=== PATIENT | male | born 1975 | race Caucasian/White ===

== ENCOUNTER 2024-10-11 12:49 | Emergency (ER) | payer MEDICAID, OTHER ==
[~2024-10-11] VITALS: Ht 170.2 cm; Wt 64.9 kg
[~2024-10-11 12:49] MED LIST: AZIT250T13 GT
[2024-10-11] MEDS ORDERED: ACETAMINOPHEN 650 MG/SUPP.RECT RC ONE (13:23)
[2024-10-11] MEDS: IV NS 0.9% 1,000 ML BAG IV ONE (13:25)
[2024-10-11] MEDS: ACETAMINOPHEN 650 MG/SUPP.RECT RC ONE (13:35)
[2024-10-11 13:37] LABS: BASOPHILS # (AUTO) 0.1 K/uL (0.0-0.2); BASOPHILS % (AUTO) 0.7 % (0.0-2.0); EOSINOPHILS # (AUTO) 0.1 K/uL (0.0-0.7); EOSINOPHILS % (AUTO) 0.6 % (0.0-6.0); HEMATOCRIT 36 % (39-51); HEMOGLOBIN 12.1 g/dL (13.5-17.5); LYMPHOCYTES # (AUTO) 3.2 K/uL (0.8-4.8); LYMPHOCYTES % (AUTO) 29.7 % (20.0-44.0); MEAN CORPUSCULAR HEMOGLOBIN 31 PG (26.0-33.0); MEAN CORPUSCULAR HGB CONC 34 g/dl (31.0-36.0); MEAN CORPUSCULAR VOLUME 92 fL (80-96); MONOCYTES # (AUTO) 0.7 K/uL (0.1-1.30); NEUTROPHILS # (AUTO) 6.6 K/uL (1.8-8.9); PLATELET COUNT (AUTO) 138 K/uL (150-450); RED BLOOD CELL COUNT(AUTO) 3.91 MIL/uL (4.5-6.0); RED CELL DISTRIBUTION WIDTH 13.7 % (11.5-15.0); WHITE BLOOD COUNT (AUTO) 10.7 K/uL (4.3-11.0)
[2024-10-11] MEDS ORDERED: PIPERACI/TAZO 3.375GM/D5W 50ML PB IV ONE (13:40)
[2024-10-11 13:42] LABS: CALCIUM, SERUM 8.8 mg/dL (8.5-10.1); CREATININE 1.1 mg/dL (0.6-1.3); POTASSIUM 3.8 mmol/L (3.5-5.1)
[2024-10-11 13:45] LABS: APPEARANCE,URINE CLEAR (CLEAR); BILIRUBIN,URINE NEGATIVE (NEGATIVE); BLOOD, URINE 1+ Ery/uL (NEGATIVE); COLOR,URINE YELLOW (YELLOW); KETONES,URINE NEGATIVE (NEGATIVE); LEUKOCYTE ESTERASE ,URINE NEGATIVE (NEGATIVE); NITRITE, URINE NEGATIVE (NEGATIVE); PROTEIN,URINE NEGATIVE (NEGATIVE); UGLUCOSE NEGATIVE (NEGATIVE)
[2024-10-11] MEDS: PIPERACILLIN /TAZOBACTAM 3.375 G in IV D5W 50 ML IV ONE (13:45)
[2024-10-11 13:47] LABS: INR 1.04 (0.91-1.10); PARTIAL THROMBOPLASTIN TIME 23.5 SEC (24.3-34.3)
[2024-10-11 13:47] LABS: ADD URINE CULTURE NO; BACTERIA,URINE Few /HPF (None Seen); RBC,URINE 21-50 /HPF (0-2); SQUAMOUS EPITHELIAL CELL,UR 0-2 /HPF (None Seen)
[2024-10-11 13:48] LABS: ALBUMIN 2.7 g/dL (3.4-5.0); BILIRUBIN,DIRECT 0.1 mg/dL (0.0-0.2); BILIRUBIN,TOTAL 0.3 mg/dL (0.2-1.0); TOTAL PROTEIN, SERUM 6.7 g/dL (6.4-8.2)
[2024-10-11 13:50] LABS: LACTIC ACID 1.7 mmol/L (0.4-2.0)
[2024-10-11] MEDS ORDERED: VANCOMYCIN 1 GM /D5W 250 ML PB IV ONE (14:06)
[2024-10-11] MEDS: VANCOMYCIN 1 GM in IV D5W 250 ML IV ONE (14:10)
[2024-10-11] MEDS ORDERED: ATOR20TA GT (15:02)
[2024-10-11] MEDS ORDERED: VALS80TA31 GT (15:02)
[2024-10-11] MEDS ORDERED: SENN8.6T19 GT (15:02)
[2024-10-11] MEDS ORDERED: INSU100I40 SQ (15:02)
[2024-10-11] MEDS ORDERED: ASCO500T10 GT (15:02)
[2024-10-11] MEDS ORDERED: ACET325T53 GT (15:02)
[2024-10-11] MEDS ORDERED: HYDR-4077 GT (15:02)
[2024-10-11] MEDS ORDERED: GLUC1KIT IM (15:02)
[2024-10-11] MEDS ORDERED: CLOP75TA15 GT (15:02)
[2024-10-11] MEDS ORDERED: MELA1TAB27 GT (15:02)
[2024-10-11] MEDS ORDERED: VALP250S3 GT (15:02)
[2024-10-11] MEDS ORDERED: AMLO-212 GT (15:02)
[2024-10-11 19:00] VITALS: BP 138/94; TEMP 99.7; O2SAT 97
== END 2024-10-11 21:15 | disposition short-term general hospital (02) ==
LOC: ER 12:52
DX: J18.9 Pneumonia, unspecified organism (principal); N39.0 Urinary tract infection, site not specified; R65.10 Systemic inflammatory response syndrome (SIRS) of non-infectious origin without acute organ dysfunction; R62.7 Adult failure to thrive; E78.5 Hyperlipidemia, unspecified; E86.0 Dehydration; E87.0 Hyperosmolality and hypernatremia; I11.9 Hypertensive heart disease without heart failure; I25.10 Atherosclerotic heart disease of native coronary artery without angina pectoris; I69.354 Hemiplegia and hemiparesis following cerebral infarction affecting left non-dominant side; K74.60 Unspecified cirrhosis of liver; Z20.822 Contact with and (suspected) exposure to COVID-19
CPT/HCPCS: 99291; 96365; 71045; 96375; 87426; 93005; 87804 ×2; 84145; 85025; 80048; 87040 ×2; 83605; 80076; 81001; 36415; 87420; 85730; J3370 ×2; J2543 ×2; J7060; J7030